=== PATIENT | male | born 1965 | race Two or more races ===

== ENCOUNTER 2023-03-14 10:56 | Day surgery (SDC) | payer OTHER ==
[2023-03-11 15:29] VITALS: BMI 30.7
[2023-03-14] MEDS ORDERED: PROPOFOL 40 ML ONE (13:33)
== END 2023-03-14 14:31 | disposition home or self-care (01) ==
LOC: CSHSDC 10:56
PROVIDERS: ATTEND Internal Medicine Gastroenterology
PROC: 0DJD8ZZ Inspection of Lower Intestinal Tract, Via Natural or Artificial Opening Endoscopic (ICD-10-PCS; principal; 2023-03-14)
DX: Z12.11 Encounter for screening for malignant neoplasm of colon (principal); I10 Essential (primary) hypertension; E11.9 Type 2 diabetes mellitus without complications; E78.5 Hyperlipidemia, unspecified
CPT/HCPCS: J2704